=== PATIENT | male | born 1945 | race Caucasian/White ===

== ENCOUNTER 2016-08-21 01:51 | Emergency (ER) | payer MEDICARE, BC ==
[2016-08-21] MEDS ORDERED: Diphtheria,Pertussis(Acell),Tetanus Vaccine 0.5 ML Syringe IM ONE (01:57)
--- NOTE | 2016-08-21 01:58 | EDM.PDOC ---
ED HPI GENERAL MEDICAL PROBLEM - General Stated Complaint: FELL, SHOWER GLASS INJURIES Time Seen by Provider: 08/21/16 01:57 Source of Information: Reports: Patient - History of Present Illness INITIAL COMMENTS - FREE TEXT/NARRATIVE: HISTORY AND PHYSICAL: History of present illness: []Patient presents to emergency room via EMS He has multiple scratches/abrasions that are not full-thickness on abdomen above his navel as well as left flank again not full-thickness; as patient fell in his bathroom going through a glass shower door tonight He does have a small full-thickness lesion subcentimeter in epigastric area as well as again a small subcentimeter full-thickness laceration over left upper quadrant or remaining lesions are superficial scratches not full-thickness No fever nausea vomiting chills sweats no chest pain shortness breath headache dizziness or palpitation no bowel or urine symptoms patient denies any head injury or loss of consciousness Denies any other injury head injury loss of consciousness or any other trauma Review of systems: As per history of present illness and below otherwise all systems reviewed and negative. Past medical history: As per history of present illness and as reviewed below otherwise noncontributory. Surgical history: As per history of present illness and as reviewed below otherwise noncontributory. Social history: No reported history of drug or alcohol abuse. Family history: As per history of present illness and as reviewed below otherwise noncontributory. Physical exam: HEENT: Atraumatic, normocephalic, pupils reactive, negative for conjunctival pallor or scleral icterus, mucous membranes moist, throat clear, neck supple, nontender, trachea midline. Lungs: Clear to auscultation, breath sounds equal bilaterally, chest nontender. Heart: S1S2, regular, negative for clicks, rubs, or JVD. Abdomen: Soft, nondistended, nontender. Negative for masses or hepatosplenomegaly. Negative for costovertebral tenderness. Pelvis: Stable nontender. Genitourinary: Deferred. Rectal: Deferred. Extremities: Atraumatic, negative for cords or calf pain. Neurovascular unremarkable. Neuro: Awake, alert, oriented. Cranial nerves II through XII unremarkable. Cerebellum unremarkable. Motor and sensory unremarkable throughout. Exam nonfocal. Diagnostics: []Flat and upright EKG Therapeutics: []Tetanus status is updated Bacitracin and bandaging Keflex 500 by mouth twice a day #20 no refill Standard wound care Keep lesions clean and dry for 48 hours Change bandaging as needed Impression: []Multiple abrasions on abdomen and flanks Subcentimeter laceration epigastrium as well as left upper quadrant/no sutures required Definitive disposition and diagnosis as appropriate pending reevaluation and review of above. abdominal area Pain Score (Numeric/FACES): 2 - Related Data Allergies Allergy/AdvReac Type Severity Reaction Status Date / Time rugweed Allergy Other Uncoded 08/21/16 02:07 Home Meds: Home Meds Aspirin 81 mg PO DAILY 08/21/16 [History] Atenolol 50 mg PO DAILY 08/21/16 [History] Fish Oil/F[place]skin-3 Fatty Acids [Fish Oil] 1 each PO BID 08/21/16 [History] amLODIPine [Norvasc] 10 mg PO DAILY 08/21/16 [History] atorvaSTATin [Lipitor] 20 mg PO ONETIME 08/21/16 [History] ED ROS GENERAL - Review of Systems Review Of Systems: ROS reveals no pertinent complaints other than HPI. ED EXAM, GENERAL - Physical Exam Exam: See Below Course - Vital Signs Last Recorded V/S: Last Vital Signs Temp 36.5 C 08/21/16 02:07 Pulse 66 08/21/16 02:07 Resp 18 08/21/16 02:07 BP 133/78 08/21/16 02:07 Pulse Ox 96 08/21/16 02:07 - Orders/Labs/Meds Orders: Active Orders 24 hr Category Date Time Status EKG Documentation Completion [RC] STAT Care 08/21/16 01:57 Active Vaccines to be Administered [RC] PER UNIT ROUTINE Care 08/21/16 01:57 Active Abdomen 2V AP Flat Upright [CR] Stat Exams 08/21/16 02:10 Taken Meds: Medications Discontinued Medications Generic Name Dose Route Start Last Admin Trade Name Freq PRN Reason Stop Dose Admin Bacitracin 5 dose 08/21/16 02:05 08/21/16 02:08 Bacitracin Oint 1 Gm TOP 08/21/16 02:06 5 dose ONETIME ONE Administration Diphtheria/Tetanus/Acell Pertussis 0.5 ml 08/21/16 01:57 08/21/16 02:08 Adacel IM 08/21/16 01:58 0.5 ml .ONCE ONE Administration Departure - Departure Time of Disposition: 03:03 Disposition: Home, Self-Care 01 Condition: Good Clinical Impression: Puncture wound, Abrasion - Discharge Information Instructions: Laceration Care, Adult, [id number] Referrals: PCP,None [Primary Care Provider] - Forms: ED Department Discharge Additional Instructions: Standard wound care as discussed Keep wounds clean and dry for the first 48 hours Medication as prescribed Tetanus status is updated days Return if fever nausea vomiting chills sweats or abdominal pain should it develop Follow-up with primary care in 2 weeks [facility] [address] [place] [id number] The following information is given to patients seen in the emergency department who are being discharged to home. This information is to outline your options for follow-up care. We provide all patients seen in our emergency department with a follow-up referral. The need for follow-up, as well as the timing and circumstances, are variable depending upon the specifics of your emergency department visit. If you don't have a primary care physician on staff, we will provide you with a referral. We always advise you to contact your personal physician following an emergency department visit to inform them of the circumstance of the visit and for follow-up with them and/or the need for any referrals to a consulting specialist. The emergency department will also refer you to a specialist when appropriate. This referral assures that you have the opportunity for follow-up care with a specialist. All of these measure are taken in an effort to provide you with optimal care, which includes your follow-up. Under all circumstances we always encourage you to contact your private physician who remains a resource for coordinating your care. When calling for follow-up care, please make the office aware that this follow-up is from your recent emergency room visit. If for any reason you are refused follow-up, please contact the [facility] emergency department at and asked to speak to the emergency department charge nurse. - My Orders Last 24 Hours: My Active Orders 08/21/16 01:57 EKG Documentation Completion [RC] STAT Vaccines to be Administered [RC] PER UNIT ROUTINE 08/21/16 02:10 Abdomen 2V AP Flat Upright [CR] Stat - Assessment/Plan Last 24 Hours: My Active Orders 08/21/16 01:57 EKG Documentation Completion [RC] STAT Vaccines to be Administered [RC] PER UNIT ROUTINE 08/21/16 02:10 Abdomen 2V AP Flat Upright [CR] Stat
[2016-08-21] MEDS ORDERED: Bacitracin Oint 1 GM U/D Packet TOP ONE (02:05)
[2016-08-21 03:17] VITALS: BP 117/67
--- NOTE | 2016-08-21 10:58 | CR ---
EXAM DATE: 08/21/16 PATIENT'S AGE: 71 Patient: VIMAL NAIK Facility: [place], [place] Site . Site : 1945 Study: XRay Abdomen/Pelvis [id number]/12/2017 2:37:59 AM Ordering Physician: Harsha Cornejo Final Report: INDICATION: Fell through shower door. Several lacerations, puncture wound. TECHNIQUE: Upright and supine views of the abdomen, total of 4 images. IMPRESSION : Loops of large and small bowel are normal in caliber. Moderate stool burden in the ascending colon. Bowel gas extends distally to the rectum. No abnormal lucency to indicate free air or portal venous gas. No abnormal renal or ureteral calculi. No radiopaque soft tissue foreign body. Dictated by John Light MD @ 08/21/2016 2:41:58 AM Dictated by: John Light MD @ 08/21/2016 02:42:03 (Electronic Signature) Report Signed by Proxy. [facility]
== END 2016-08-21 03:14 | disposition home or self-care (01) ==
LOC: MW.ED 01:51
DX: S31.112A Laceration without foreign body of abdominal wall, epigastric region without penetration into peritoneal cavity, initial encounter (principal); S31.111A Laceration without foreign body of abdominal wall, left upper quadrant without penetration into peritoneal cavity, initial encounter; Z23 Encounter for immunization; Z79.82 Long term (current) use of aspirin; Z79.899 Other long term (current) drug therapy; Z91.018 Allergy to other foods; W18.02XA Striking against glass with subsequent fall, initial encounter
CPT/HCPCS: 74020; 74020-26; 90471; 90715; 93005; 99283; 99284-25